=== PATIENT | male | born 1975 | race Caucasian/White ===

== ENCOUNTER 2017-01-27 18:19 | Emergency (ER) | payer OTHER ==
[2017-01-27 18:35] VITALS: TEMP 98.7; BMI 31.3
--- NOTE | 2017-01-27 19:16 | PDOC ---
[id number] DIZZINESS Time Seen by Provider: 01/27/17 19:15 History Source: Patient - History of Present Illness Initial Comments: 01/27/17 19:29 41 year old male with sudden onset lightheadedness from sitting to standing followed by b/l flank pain prior to arrival. patient reports pain to flank area similar to previous kidney stones. currently pain has resolved. patient reports taking b/p medication prior to arrival.denies chest pain, NV, abdominal pain, fever/ chills, hematuria, urinary complaints. Past History - Past Medical History Allergies/Adverse Reactions: Allergies Allergy/AdvReac Type Severity Reaction Status Date / Time No Known Allergies Allergy Verified 01/27/17 18:34 Home Medications: Ambulatory Orders Metformin HCl [Glucophage -] 500 mg PO BID #60 tablet 05/12/16 Amlodipine Besylate 10 mg PO DAILY 01/27/17 Glipizide 5 mg PO DAILY 01/27/17 Hydralazine HCl [Apresoline -] 25 mg PO DAILY 01/27/17 Losartan Potassium 25 mg PO DAILY 01/27/17 Cephalexin [Keflex] 500 mg PO TID #28 capsule 01/28/17 Diabetes: Yes (???) HTN: Yes (NON COMPLIANT WITH MEDICATION) Suicide Attempt (Hx): No - Psycho/Social/Smoking Cessation Hx Anxiety: No Suicidal Ideation: No Smoking Status: No Smoking History: Never smoked Number of Cigarettes Smoked Daily: 0 Hx Alcohol Use: No Drug/Substance Use Hx: No Substance Use Type: None *Physical Exam - Vital Signs Last Vital Signs Temp Pulse Resp BP Pulse Ox 98.7 F 88 20 170/109 97 01/27/17 18:31 01/27/17 19:04 01/27/17 19:04 01/27/17 19:04 01/27/17 18:31 - Physical Exam General Appearance: Yes: Appropriately Dressed HEENT: positive: Other (right nipple area dime sized erythematous area and warm/ tenderness to touch to touch) Respiratory/Chest: positive: Lungs Clear, Normal Breath Sounds Cardiovascular: positive: Regular Rhythm, Regular Rate Gastrointestinal/Abdominal: positive: Normal Bowel Sounds, Soft Musculoskeletal: positive: Normal Inspection. 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 cephalexin added. patient called and informed. antibiotics sent to patient preferred pharmacy. *DC/Admit/Observation/Transfer Diagnosis at time of Disposition: Near syncope, Hypokalemia Hypertension Qualifiers: Hypertension type: essential hypertension Qualified Code(s): I10 - Essential ( primary) hypertension Cellulitis Qualifiers: Site of cellulitis: trunk Site of cellulitis of trunk: chest wall Qualified Code(s): L03.313 - Cellulitis of chest wall - Discharge Dispostion Disposition: HOME - Prescriptions Prescriptions: Cephalexin [Keflex] 500 mg PO TID #28 capsule - Referrals Referrals: Greg Zelaya MD [Primary Care Provider] - - Patient Instructions Printed Discharge Instructions: Malignant Hypertension Additional Instructions: follow up with your doctor as soon as possible. position change slowly. return to the ER if symptoms worsen.
[2017-01-27 19:34] LABS: BASOPHIL 1.1 % (0-2.0); EOSINOPHIL 2.4 % (0-4.5); MCH 30.5 pg (25.7-33.7); MCHC 34.3 g/dl (32.0-35.9); MEAN CELL VOLUME 88.7 fl (80-96); MEAN PLT VOLUME 11.1 fl (7.5-11.1); NEUTROPHILS 48.1 % (42.8-82.8); PLATELET COUNT 125 K/MM3 (134-434); RDW 13.6 % (11.9-15.9)
[2017-01-27 19:39] LABS: ALBUMIN 4.3 g/dl (3.4-5.0); ANION GAP 12 (8-16); CALCIUM 8.6 mg/dL (8.5-10.1); CO2 27 mmol/L (21-32); COCKROFT - GAULT 122.21; GLUCOSE,RANDOM 93 mg/dL (74-106); SGOT/AST 26 U/L (15-37); SGPT/ALT 51 U/L (12-78)
[2017-01-27 19:42] LABS: ALK PHOS 83 U/L (45-117); BILIRUBIN,TOTAL 0.5 mg/dL (0.2-1.0); TOT PROT 7.3 g/dl (6.4-8.2); TROPONIN I < 0.02 ng/ml (0.00-0.05)
[2017-01-27] MEDS ORDERED: cloNIDine HCL 0.1 MG TABLET PO ONE (20:04)
[2017-01-27] MEDS ORDERED: cloNIDine HCL 0.1 MG TABLET ONE (20:14)
--- NOTE | 2017-01-27 20:40 | PDOC ---
*Physical Exam - Vital Signs Last Vital Signs Temp Pulse Resp BP Pulse Ox 98.7 F 88 20 170/109 97 01/27/17 18:31 01/27/17 19:04 01/27/17 19:04 01/27/17 19:04 01/27/17 18:31 ED Treatment Course - LABORATORY CBC & Chemistry Diagram: 01/27/17 18:53 01/27/17 18:53 - ADDITIONAL ORDERS Additional order review: Laboratory Results 01/27/17 01/27/17 18:53 18:53 Sodium 142 Potassium 3.1 L D Chloride 103 Carbon Dioxide 27 Anion Gap 12 BUN 15 Creatinine 1.0 Creat Clearance w eGFR > 60 Random Glucose 93 D Calcium 8.6 Total Bilirubin 0.5 D AST 26 D ALT 51 D Alkaline Phosphatase 83 Creatine Kinase 220 Creatine Kinase Index 0.5 CK-MB (CK-2) 1.076 CK-MB (CK-2) Rel Index Cancelled Troponin I < 0.02 Total Protein 7.3 Albumin 4.3 01/27/17 18:53 RBC 5.01 MCV 88.7 MCHC 34.3 RDW 13.6 MPV 11.1 Neutrophils % 48.1 Lymphocytes % 43.6 H Monocytes % 4.8 Eosinophils % 2.4 Basophils % 1.1 - RADIOLOGY Radiology Studies Ordered: Category Date Time Status CHEST X-RAY PORTABLE* [RAD] Stat Radiology 01/27/17 18:50 Completed - Medications Given in the ED: ED Medications Discontinued Medications Generic Name Dose Route Start Last Admin Trade Name Freq PRN Reason Stop Dose Admin Clonidine 0.2 mg 01/27/17 20:04 01/27/17 20:17 Catapres - PO 01/27/17 20:05 0.2 mg ONCE ONE Administration Medical Decision Making - Medical Decision Making 01/27/17 20:40 agree with care from SUSAN Hankins *DC/Admit/Observation/Transfer Diagnosis at time of Disposition: Near syncope, Hypertension, Hypokalemia, Cellulitis - Discharge Dispostion Disposition: HOME - Prescriptions Prescriptions: Cephalexin [Keflex] 500 mg PO TID #28 capsule - Referrals Referrals: Greg Zelaya MD [Primary Care Provider] - - Patient Instructions Printed Discharge Instructions: Malignant Hypertension Additional Instructions: follow up with your doctor as soon as possible. position change slowly. return to the ER if symptoms worsen. - Post Discharge Activity
[2017-01-27 20:56] LABS: INR 1.02 (0.82-1.09); PROTHROMBIN TIME (PATIENT) 11.2 SEC (9.98-11.88)
[2017-01-27 21:02] LABS: URINE APPEARANCE CLEAR; URINE BILIRUBIN NEGATIVE (NEGATIVE); URINE BLOOD NEGATIVE (NEGATIVE); URINE COLOR STRAW; URINE GLUCOSE (UA) NEGATIVE (NEGATIVE); URINE KETONE TRACE (NEGATIVE); URINE LEUK ESTERASE NEGATIVE (NEGATIVE); URINE NITRITE NEGATIVE (NEGATIVE); URINE PROTEIN NEGATIVE (NEGATIVE); URINE UROBILINOGEN NEGATIVE E.U./dl (0.2-1.0)
[2017-01-28 00:21] LABS: TROPONIN I < 0.02 ng/ml (0.00-0.05)
[2017-01-28] MEDS ORDERED: POTASSIUM CHLORIDE TABS 20 MEQ TABLET.ER (FP) PO ONE ×2 (00:21→00:27)
[2017-01-28 00:38] VITALS: BP 110/71; PULSE 65
--- NOTE | 2017-01-28 09:09 | EKG ---
Test Reason : Blood Pressure : / mmHG Vent. Rate : 075 BPM Atrial Rate : 075 BPM P-R Int : 172 ms QRS Dur : 098 ms QT Int : 416 ms P-R-T Axes : 049 010 024 degrees QTc Int : 464 ms NORMAL SINUS RHYTHM INCOMPLETE RBBB NONSPECIFIC ST ABNORMALITY WHEN COMPARED WITH ECG OF 12-MAY-2016 14:34, NO SIGNIFICANT CHANGE WAS FOUND Confirmed by KEM MENARD MD ([id number]) on 01/28/2017 9:08:59 AM Referred By: Confirmed By:KEM MENARD MD
== END 2017-01-28 00:43 | disposition home or self-care (01) ==
LOC: JER 18:19
DX: R55 Syncope and collapse (principal); E87.6 Hypokalemia; N20.0 Calculus of kidney; Z87.442 Personal history of urinary calculi; L03.313 Cellulitis of chest wall; I10 Essential (primary) hypertension; E11.9 Type 2 diabetes mellitus without complications; Z79.84 Long term (current) use of oral hypoglycemic drugs; Z91.14 Patient's other noncompliance with medication regimen
CPT/HCPCS: 36415; 71010-TC; 74176; 80053; 81003; 82550; 82553; 84484; 85025; 85610; 93005; 93010; 99285-25

== ENCOUNTER 2024-07-04 09:12 | Inpatient (IN) | payer OTHER ==
[2024-07-04 10:09] LABS: INR 0.97 (0.83-1.09); PROTHROMBIN TIME (PATIENT) 11.1 SEC (9.7-13.0)
[2024-07-04 10:12] LABS: ACTIVATED PTT 40.2 SECONDS (25.2-36.5)
[2024-07-04] MEDS: SODIUM CHLORIDE 0.9% 500 ML INFUS.BAG IV ONE (10:12)
[2024-07-04] MEDS: FAMOTIDINE 20 MG/50 ML IVPB 20 MG/50 ML MG IVPB ONE (10:13)
[2024-07-04] MEDS: diphenhydrAMINE HCL 50 MG CAPSULE PO ONE (10:13)
[2024-07-04] MEDS: MAG HYDROX/AL HYDROX/SIMETH 30 ML UNIT-DOSE CUP PO ONE (10:13)
[2024-07-04 10:19] LABS: HEMATOCRIT 42.7 % (35.4-49); MCH 30.6 pg (25.7-33.7); MCHC 32.8 g/dl (32.0-35.9); MEAN CELL VOLUME 93.3 fl (80-96); MEAN PLT VOLUME 12.7 fl (7.5-11.1); PLATELET COUNT 74.1 10^3/uL (134-434); RBC 4.58 10^6/uL (4.00-5.60); RDW 14.7 % (11.9-15.9); WHITE BLOOD COUNT 3.8 10^3/uL (4.0-10.8)
[2024-07-04] MEDS ORDERED: diphenhydrAMINE HCL 25 MG CAPSULE (FP) PO ONE (10:21)
[2024-07-04] MEDS ORDERED: FAMOTIDINE 20 MG/50 ML IVPB 20 MG/50 ML MG IVPB ONE (10:21)
[2024-07-04] MEDS ORDERED: MAG HYDROX/AL HYDROX/SIMETH 30 ML UNIT-DOSE CUP ONE (10:22)
[2024-07-04 10:25] LABS: PLATELET ESTIMATE DECREASED
[2024-07-04 10:28] LABS: ALBUMIN 3.9 g/dl (3.4-5.0); CALCIUM 9.3 mg/dl (8.5-10.1); CALCIUM OXALATE CRYSTALS MANY /hpf (NONE SEEN); CREATININE 1.1 mg/dl (0.6-1.3); POTASSIUM 3.6 mmol/L (3.5-5.1); TOT PROT 6.7 g/dl (6.4-8.2)
[2024-07-04] MEDS: INSULIN ASPART SLIDING SCALE (NOVOLOG) 1 VIAL SQ SCH (16:34)
[2024-07-04] MEDS: LACTATED RINGERS SOLUTION 1,000 ML IV SCH (16:36)
[2024-07-04] MEDS: PIPERACILLIN/TAZOB 3.375 GM 3.375 GM in DEXTROSE 5%-WATER - 50 ML IVPB SCH (19:19)
[2024-07-05 08:53] LABS: BASO % 1.2 % (0-2.0); EOS % 3.3 % (0-4.5); HEMATOCRIT 41.3 % (35.4-49); HEMOGLOBIN 13.9 GM/dL (11.7-16.9); LYMPH % 36.9 % (8-40); MCH 30.9 pg (25.7-33.7); MCHC 33.7 g/dl (32.0-35.9); MEAN CELL VOLUME 91.9 fl (80-96); MEAN PLT VOLUME 12.1 fl (7.5-11.1); NEUT % 52.6 % (42.8-82.8); PLATELET COUNT 74 10^3/uL (134-434); RBC 4.49 M/mm3 (4.00-5.60); RDW 14.9 % (11.9-15.9); WHITE BLOOD COUNT 3.6 K/mm3 (4.0-10.0)
[2024-07-05 08:54] LABS: POTASSIUM 3.5 mmol/L (3.5-5.1)
[2024-07-05 08:57] LABS: CALCIUM 8.8 mg/dL (8.5-10.1)
[2024-07-05 08:58] LABS: BLOOD UREA NITROGEN 16.6 mg/dL (7-18)
[2024-07-05 09:01] LABS: CREATININE 1.1 mg/dL (0.55-1.3)
[2024-07-05 09:02] LABS: BILIRUBIN,TOTAL 3.1 mg/dL (0.2-1); TOT PROT 6.5 g/dl (6.4-8.2)
[2024-07-05 09:05] LABS: INR 0.94 (0.83-1.09); PROTHROMBIN TIME (PATIENT) 10.8 SEC (9.7-13.0)
[2024-07-05] MEDS: amLODIPine BESYLATE 10 MG TABLET (FP) PO SCH (09:08)
[2024-07-05] MEDS: LISINOPRIL 20 MG TABLET PO SCH (09:08)
[2024-07-05] MEDS: PIPERACILLIN/TAZOB 3.375 GM 3.375 GM in DEXTROSE 5%-WATER - 50 ML IVPB SCH ×2 (17:05→17:43)
[2024-07-06] MEDS ORDERED: PIPERACILLIN/TAZOB 3.375 GM 3.375 GM in DEXTROSE 5%-WATER - 50 ML IVPB SCH (01:00)
[2024-07-06 06:09] LABS: CMV IgM < 30.0 AU/mL (0.0-29.9)
[2024-07-06] MEDS: PIPERACILLIN/TAZOB 3.375 GM 3.375 GM in DEXTROSE 5%-WATER - 50 ML IVPB SCH (08:57)
[2024-07-06] MEDS: INDOMETHACIN 50 MG RECTAL SUPPOSITORY PR ONE ×2 (08:57→12:48)
[2024-07-06 09:13] LABS: POTASSIUM 3.5 mmol/L (3.5-5.1)
[2024-07-06 09:18] LABS: BASO % 1.4 % (0-2.0); EOS % 3.4 % (0-4.5); HEMATOCRIT 42.1 % (35.4-49); HEMOGLOBIN 14.1 GM/dL (11.7-16.9); LYMPH % 29.7 % (8-40); MCH 31.1 pg (25.7-33.7); MCHC 33.4 g/dl (32.0-35.9); MEAN CELL VOLUME 93.1 fl (80-96); MEAN PLT VOLUME 11.5 fl (7.5-11.1); MONO % 5.7 % (3.8-10.2); NEUT % 59.8 % (42.8-82.8); PLATELET COUNT 74 10^3/uL (134-434); RBC 4.53 M/mm3 (4.00-5.60); RDW 14.5 % (11.9-15.9); WHITE BLOOD COUNT 3.9 K/mm3 (4.0-10.0)
[2024-07-06 09:26] LABS: ALBUMIN 3.2 g/dl (3.4-5.0)
[2024-07-06 09:27] LABS: BLOOD UREA NITROGEN 17.4 mg/dL (7-18); CALCIUM 9.1 mg/dL (8.5-10.1); MAGNESIUM 2.4 mg/dL (1.8-2.4)
[2024-07-06 09:30] LABS: BILIRUBIN,TOTAL 4.2 mg/dL (0.2-1); CREATININE 1.1 mg/dL (0.55-1.3); PHOSPHOROUS 3.2 mg/dL (2.5-4.9); TOT PROT 6.7 g/dl (6.4-8.2)
[2024-07-06 13:01] LABS: HIV INTERPRETATION NEGATIVE (NEGATIVE)
[2024-07-06] MEDS ORDERED: MIDAZOLAM HCL 2 MG/2 ML SINGLE DOSE VIAL ONE (13:38)
[2024-07-06] MEDS ORDERED: EPINEPHrine 1:10,000 (P-F SYR) 1 MG/10 ML DISP.SYRIN ONE (13:46)
[2024-07-06] MEDS ORDERED: ACETAMINOPHEN 500 MG TABLET (FP) PO PRN (20:47)
[2024-07-06] MEDS: ACETAMINOPHEN 500 MG TABLET (FP) PO ONE (20:54)
[2024-07-06] MEDS: ONDANSETRON 4 MG/2 ML VIAL IVPUSH ONE (21:55)
[2024-07-06] MEDS: ACETAMINOPHEN 500 MG TABLET (FP) PO SCH (21:58)
[2024-07-06] MEDS ORDERED: KETOROLAC TROMETHAMINE 30 MG/1 ML VIAL IVPUSH PRN (22:22)
[2024-07-06] MEDS: KETOROLAC TROMETHAMINE 30 MG/1 ML VIAL IVPUSH ONE (22:34)
[2024-07-07] MEDS: morphine SULFATE 4 MG/ML VIAL IVPUSH PRN ×2 (01:21→09:40)
[2024-07-07] MEDS: ONDANSETRON 4 MG/2 ML VIAL IVPUSH PRN (03:25)
[2024-07-07] MEDS: LACTATED RINGERS SOLUTION 1,000 ML/1,000 ML INFUS.BAG IV SCH ×2 (06:38→14:39)
[2024-07-07] MEDS: HYDROmorphone HCL 2 MG TABLET PO PRN (06:44)
[2024-07-07 09:26] LABS: POTASSIUM 3.9 mmol/L (3.5-5.1)
[2024-07-07 09:31] LABS: BASO % 0.1 % (0-2.0); HEMATOCRIT 48.4 % (35.4-49); HEMOGLOBIN 16.1 GM/dL (11.7-16.9); LYMPH % 7.7 % (8-40); MCH 30.9 pg (25.7-33.7); MCHC 33.1 g/dl (32.0-35.9); MEAN CELL VOLUME 93.2 fl (80-96); MONO % 5.6 % (3.8-10.2); NEUT % 86.6 % (42.8-82.8); RBC 5.19 M/mm3 (4.00-5.60); RDW 14.5 % (11.9-15.9)
[2024-07-07 09:34] LABS: CALCIUM 9.3 mg/dL (8.5-10.1)
[2024-07-07 09:35] LABS: BLOOD UREA NITROGEN 31.2 mg/dL (7-18)
[2024-07-07 09:38] LABS: CREATININE 2.3 mg/dL (0.55-1.3)
[2024-07-07 09:39] LABS: BILIRUBIN,TOTAL 3.1 mg/dL (0.2-1); TOT PROT 6.3 g/dl (6.4-8.2)
[2024-07-07] MEDS: SODIUM CHLORIDE 1,000 ML IV STA ×2 (12:02→12:21)
[2024-07-07] MEDS ORDERED: HYDROmorphone HCl 2 MG/ML VIAL IVPUSH PRN (12:55)
[2024-07-07] MEDS ORDERED: LACTATED RINGERS SOLUTION 1,000 ML/1,000 ML INFUS.BAG IV SCH (13:00)
[2024-07-07] MEDS: HYDROmorphone HCL CARPU-JECT 2 MG/1 ML DISP.SYRIN IVPUSH PRN (13:06)
[2024-07-07 14:33] LABS: EPI CELLS 15 /uL (0-25.1); HYALINE CASTS 5 /uL (0-3.1); URINE APPEARANCE CLEAR; URINE BACTERIA 3 /uL (0-1359); URINE BILIRUBIN 1+ (NEGATIVE); URINE COLOR DK YELLOW; URINE GLUCOSE (UA) NEGATIVE (NEGATIVE); URINE KETONE NEGATIVE (NEGATIVE); URINE LEUK ESTERASE NEGATIVE (NEGATIVE); URINE NITRITE NEGATIVE (NEGATIVE); URINE PROTEIN 2+ (NEGATIVE); URINE WBC 127 /uL (0-25.8)
[2024-07-07 14:36] LABS: URINE RBC 15 /uL (0-23.9); YEAST NONE SEEN (NEGATIVE)
[2024-07-08 09:35] LABS: HEMATOCRIT 45.6 % (35.4-49); HEMOGLOBIN 15.5 GM/dL (11.7-16.9); MCH 31.4 pg (25.7-33.7); MCHC 33.9 g/dl (32.0-35.9); MEAN CELL VOLUME 92.7 fl (80-96); MEAN PLT VOLUME 12.6 fl (7.5-11.1); PLATELET COUNT 121 10^3/uL (134-434); RBC 4.92 M/mm3 (4.00-5.60); RDW 15.2 % (11.9-15.9); WHITE BLOOD COUNT 20.9 K/mm3 (4.0-10.0)
[2024-07-08] MEDS: PANTOPRAZOLE 40 MG TABLET PO SCH (10:00)
[2024-07-08] MEDS: SENNOSIDES 8.6MG TABLET (FP) PO SCH (10:00)
[2024-07-08] MEDS: POLYETHYLENE GLYCOL (HEALTHYLAX) 3350 17 GM PACKET PO SCH (10:00)
[2024-07-08 10:04] LABS: POTASSIUM 3.9 mmol/L (3.5-5.1)
[2024-07-08 10:06] LABS: ALBUMIN 2.8 g/dl (3.4-5.0)
[2024-07-08 10:07] LABS: BLOOD UREA NITROGEN 49.2 mg/dL (7-18)
[2024-07-08 10:10] LABS: CREATININE 2.2 mg/dL (0.55-1.3)
[2024-07-08 10:11] LABS: BILIRUBIN,TOTAL 2.9 mg/dL (0.2-1); TOT PROT 5.9 g/dl (6.4-8.2)
[2024-07-08 10:27] LABS: ANISOCYTOSIS 0; HELMET CELLS 0; HOWELL-JOLLY BODIES 0; MACROCYTOSIS 0; OVALOCYTE 0; ROULEAU 0; SICKELED CELLS 0; TARGET CELLS 0; TEAR DROP CELLS 0; TOXIC GRANULATION 0
[2024-07-08 10:34] LABS: CALCIUM 7.9 mg/dL (8.5-10.1)
[2024-07-08] MEDS: LACTATED RINGERS SOLUTION 1,000 ML/1,000 ML INFUS.BAG IV SCH (11:11)
[2024-07-09 09:17] LABS: BASO % 0.4 % (0-2.0); EOS % 0.2 % (0-4.5); HEMATOCRIT 41.1 % (35.4-49); HEMOGLOBIN 13.7 GM/dL (11.7-16.9); LYMPH % 5.9 % (8-40); MCH 31.1 pg (25.7-33.7); MCHC 33.2 g/dl (32.0-35.9); MEAN CELL VOLUME 93.7 fl (80-96); MEAN PLT VOLUME 12.4 fl (7.5-11.1); MONO % 7.5 % (3.8-10.2); PLATELET COUNT 92 10^3/uL (134-434); RBC 4.39 M/mm3 (4.00-5.60); RDW 14.7 % (11.9-15.9); WHITE BLOOD COUNT 17.5 K/mm3 (4.0-10.0)
[2024-07-09 09:32] LABS: POTASSIUM 3.8 mmol/L (3.5-5.1)
[2024-07-09 09:35] LABS: ALBUMIN 2.3 g/dl (3.4-5.0); CALCIUM 7.3 mg/dL (8.5-10.1)
[2024-07-09 09:36] LABS: MAGNESIUM 1.8 mg/dL (1.8-2.4)
[2024-07-09 09:39] LABS: CREATININE 1.6 mg/dL (0.55-1.3); PHOSPHOROUS 2.4 mg/dL (2.5-4.9)
[2024-07-09 09:40] LABS: BILIRUBIN,TOTAL 2.9 mg/dL (0.2-1); TOT PROT 5.1 g/dl (6.4-8.2)
[2024-07-09] MEDS: POTASSIUM PHOSPHATE 15 MM in DEXTROSE 5%-WATER - 250 ML IVPB ONE (13:34)
[2024-07-09] MEDS ORDERED: MAGNESIUM 2GM/50ML STERILE WATER IVPB IVPB ONE (17:45)
[2024-07-10 10:49] LABS: BASO % 0.2 % (0-2.0); EOS % 0.3 % (0-4.5); HEMATOCRIT 39.6 % (35.4-49); HEMOGLOBIN 13.3 GM/dL (11.7-16.9); LYMPH % 5.9 % (8-40); MCH 31.2 pg (25.7-33.7); MCHC 33.5 g/dl (32.0-35.9); MEAN CELL VOLUME 92.9 fl (80-96); MONO % 8.5 % (3.8-10.2); NEUT % 85.1 % (42.8-82.8); PLATELET COUNT 96 10^3/uL (134-434); RBC 4.26 M/mm3 (4.00-5.60); RDW 14.6 % (11.9-15.9); WHITE BLOOD COUNT 14.4 K/mm3 (4.0-10.0)
[2024-07-10 11:12] LABS: POTASSIUM 3.4 mmol/L (3.5-5.1)
[2024-07-10 11:42] LABS: ALBUMIN 2.4 g/dl (3.4-5.0)
[2024-07-10 11:45] LABS: BILIRUBIN,TOTAL 3.1 mg/dL (0.2-1); TOT PROT 5.4 g/dl (6.4-8.2)
[2024-07-10 11:46] LABS: ALBUMIN 2.5 g/dl (3.4-5.0); BILIRUBIN,DIRECT 2.1 mg/dL (0.0-0.2)
[2024-07-10 11:50] LABS: BLOOD UREA NITROGEN 39.9 mg/dL (7-18); CALCIUM 7.8 mg/dL (8.5-10.1)
[2024-07-10 11:54] LABS: BILIRUBIN,TOTAL 3.2 mg/dL (0.2-1); CREATININE 1.3 mg/dL (0.55-1.3); TOT PROT 5.5 g/dl (6.4-8.2)
[2024-07-10] MEDS: POTASSIUM CHLORIDE ORAL LIQUID 20 MEQ/15 ML PO ONE (13:54)
[2024-07-10 21:07] LABS: IG G QN IMMUNOGLOBULIN 1034 mg/dL (603-1613); IGG SUBCLASS 1 453 mg/dL (248-810); IGG SUBCLASS 2 413 mg/dL (130-555); IGG SUBCLASS 3 90 mg/dL (15-102)
[2024-07-11] MEDS: HYDROmorphone HCL CARPU-JECT 2 MG/1 ML DISP.SYRIN IVPB PRN (09:19)
[2024-07-11] MEDS: predniSONE 20 MG TABLET (UD) PO SCH (09:34)
[2024-07-11] MEDS: CALCIUM 250MG/VIT-D 125 UNITS 1 COMBO TABLET PO SCH (09:35)
[2024-07-11 10:14] LABS: INR 1.43 (0.83-1.09); PROTHROMBIN TIME (PATIENT) 16.3 SEC (9.7-13.0)
[2024-07-11 10:18] LABS: BASO % 0.4 % (0-2.0); EOS % 0.6 % (0-4.5); HEMATOCRIT 36.9 % (35.4-49); HEMOGLOBIN 12.1 GM/dL (11.7-16.9); LYMPH % 8.9 % (8-40); MCH 30.6 pg (25.7-33.7); MCHC 32.9 g/dl (32.0-35.9); MEAN CELL VOLUME 93.2 fl (80-96); MEAN PLT VOLUME 11.6 fl (7.5-11.1); NEUT % 80.1 % (42.8-82.8); PLATELET COUNT 103 10^3/uL (134-434); RBC 3.96 M/mm3 (4.00-5.60); RDW 14.3 % (11.9-15.9); WHITE BLOOD COUNT 11.5 K/mm3 (4.0-10.0)
[2024-07-11 10:28] LABS: POTASSIUM 3.3 mmol/L (3.5-5.1)
[2024-07-11 10:42] LABS: BLOOD UREA NITROGEN 24.7 mg/dL (7-18); CALCIUM 7.8 mg/dL (8.5-10.1)
[2024-07-11 10:43] LABS: ALBUMIN 2.2 g/dl (3.4-5.0)
[2024-07-11 10:46] LABS: TOT PROT 5.1 g/dl (6.4-8.2)
[2024-07-11 10:48] LABS: BILIRUBIN,TOTAL 2.7 mg/dL (0.2-1)
[2024-07-11 10:49] LABS: BILIRUBIN,DIRECT 1.8 mg/dL (0.0-0.2)
[2024-07-11] MEDS: POTASSIUM CHLORIDE ORAL LIQUID 20 MEQ/15 ML PO ONE ×2 (13:17→16:10)
[2024-07-11] MEDS ORDERED: SENNOSIDES 8.6MG TABLET (FP) PO SCH (22:00)
[2024-07-12 10:04] LABS: BASO % 0.2 % (0-2.0); EOS % 0.4 % (0-4.5); HEMOGLOBIN 11.9 GM/dL (11.7-16.9); LYMPH % 12.9 % (8-40); MCH 30.9 pg (25.7-33.7); MEAN PLT VOLUME 10.7 fl (7.5-11.1); MONO % 9.9 % (3.8-10.2); NEUT % 76.6 % (42.8-82.8); PLATELET COUNT 117 10^3/uL (134-434); RBC 3.84 M/mm3 (4.00-5.60); RDW 14.4 % (11.9-15.9); WHITE BLOOD COUNT 11.7 K/mm3 (4.0-10.0)
[2024-07-12 10:06] LABS: INR 1.27 (0.83-1.09); PROTHROMBIN TIME (PATIENT) 14.3 SEC (9.7-13.0)
[2024-07-12 10:24] LABS: POTASSIUM 3.6 mmol/L (3.5-5.1)
[2024-07-12 10:27] LABS: ALBUMIN 2.2 g/dl (3.4-5.0)
[2024-07-12 10:28] LABS: BLOOD UREA NITROGEN 25.2 mg/dL (7-18)
[2024-07-12 10:31] LABS: CREATININE 0.9 mg/dL (0.55-1.3)
[2024-07-12 10:32] LABS: BILIRUBIN,TOTAL 1.8 mg/dL (0.2-1); TOT PROT 5.3 g/dl (6.4-8.2)
[2024-07-12] MEDS: POLYETHYLENE GLYCOL (HEALTHYLAX) 3350 17 GM PACKET PO SCH (10:34)
[2024-07-12] MEDS: HYDROmorphone HCL CARPU-JECT 2 MG/1 ML DISP.SYRIN IVPB PRN ×2 (10:35→17:01)
[2024-07-12] MEDS ORDERED: SODIUM CHLORIDE 1,000 ML IV SCH (12:45)
[2024-07-12] MEDS: LACTATED RINGERS SOLUTION 1,000 ML/1,000 ML INFUS.BAG IV SCH (18:31)
[2024-07-13 09:14] LABS: BASO % 0.1 % (0-2.0); EOS % 0.1 % (0-4.5); HEMATOCRIT 38.2 % (35.4-49); HEMOGLOBIN 12.5 GM/dL (11.7-16.9); LYMPH % 10.2 % (8-40); MCH 30.5 pg (25.7-33.7); MCHC 32.9 g/dl (32.0-35.9); MEAN CELL VOLUME 92.9 fl (80-96); MONO % 8.7 % (3.8-10.2); NEUT % 80.9 % (42.8-82.8); PLATELET COUNT 149 10^3/uL (134-434); RBC 4.11 M/mm3 (4.00-5.60); RDW 14.4 % (11.9-15.9); WHITE BLOOD COUNT 13.1 K/mm3 (4.0-10.0)
[2024-07-13 09:28] LABS: POTASSIUM 4.3 mmol/L (3.5-5.1)
[2024-07-13 09:34] LABS: ALBUMIN 2.2 g/dl (3.4-5.0); BLOOD UREA NITROGEN 26.7 mg/dL (7-18); CALCIUM 8.4 mg/dL (8.5-10.1)
[2024-07-13 09:35] LABS: CREATININE 0.8 mg/dL (0.55-1.3)
[2024-07-13 09:36] LABS: BILIRUBIN,TOTAL 1.8 mg/dL (0.2-1)
[2024-07-13 09:37] LABS: TOT PROT 5.5 g/dl (6.4-8.2)
[2024-07-13] MEDS: HYDROmorphone HCL CARPU-JECT 2 MG/1 ML DISP.SYRIN IVPB PRN (12:06)
[2024-07-13] MEDS: oxyCODONE HCL 5 MG TABLET PO PRN (18:50)
[2024-07-14 10:49] LABS: HEMATOCRIT 38.4 % (35.4-49); HEMOGLOBIN 12.7 GM/dL (11.7-16.9); MCH 30.2 pg (25.7-33.7); MEAN CELL VOLUME 91.7 fl (80-96); MEAN PLT VOLUME 10.3 fl (7.5-11.1); PLATELET COUNT 172 10^3/uL (134-434); RBC 4.19 M/mm3 (4.00-5.60); RDW 14.1 % (11.9-15.9); WHITE BLOOD COUNT 17.4 K/mm3 (4.0-10.0)
[2024-07-14 11:10] LABS: POTASSIUM 3.2 mmol/L (3.5-5.1)
[2024-07-14 11:18] LABS: ALBUMIN 2.2 g/dl (3.4-5.0)
[2024-07-14 11:19] LABS: BLOOD UREA NITROGEN 21.2 mg/dL (7-18)
[2024-07-14 11:20] LABS: BILIRUBIN,TOTAL 1.4 mg/dL (0.2-1); TOT PROT 5.6 g/dl (6.4-8.2)
[2024-07-14 11:22] LABS: CREATININE 0.9 mg/dL (0.55-1.3)
[2024-07-14] MEDS: LIPASE/PROTEASE/AMYLASE 36,000 UNIT CAPSULE PO SCH (11:24)
[2024-07-14] MEDS ORDERED: oxyCODONE HCL 5 MG TABLET PO PRN (11:48)
[2024-07-14 11:49] LABS: ANISOCYTOSIS 0; MACROCYTOSIS 0
[2024-07-14 11:50] LABS: PLATELET ESTIMATE ADEQUATE
[2024-07-14] MEDS: SIMETHICONE 80 MG TAB.CHEW (FP) PO SCH (14:07)
[2024-07-14] MEDS: POTASSIUM CHLORIDE TABS 20 MEQ TABLET.ER (FP) PO SCH (16:00)
[2024-07-14 21:05] VITALS: BMI 25.9
[2024-07-14] MEDS: oxyCODONE HCL 5 MG TABLET PO PRN (21:31)
[2024-07-15 10:13] LABS: HEMOGLOBIN 12.5 GM/dL (11.7-16.9); MCH 30.7 pg (25.7-33.7); MCHC 33.7 g/dl (32.0-35.9); MEAN PLT VOLUME 10.5 fl (7.5-11.1); PLATELET COUNT 164 10^3/uL (134-434); RBC 4.07 M/mm3 (4.00-5.60); RDW 14.1 % (11.9-15.9); WHITE BLOOD COUNT 18.1 K/mm3 (4.0-10.0)
[2024-07-15 10:29] LABS: POTASSIUM 3.8 mmol/L (3.5-5.1)
[2024-07-15 10:31] LABS: CALCIUM 7.9 mg/dL (8.5-10.1)
[2024-07-15 10:32] LABS: MAGNESIUM 1.9 mg/dL (1.8-2.4)
[2024-07-15 10:35] LABS: CREATININE 0.8 mg/dL (0.55-1.3); PHOSPHOROUS 2.6 mg/dL (2.5-4.9)
[2024-07-15 10:36] LABS: BILIRUBIN,TOTAL 1.2 mg/dL (0.2-1); TOT PROT 5.3 g/dl (6.4-8.2)
[2024-07-15 10:45] LABS: ANISOCYTOSIS 0; MACROCYTOSIS 0
[2024-07-15] MEDS: DEXTROSE 5%-NORMAL SALINE 1,000 ML IV SCH (11:41)
[2024-07-15] MEDS: KETOROLAC TROMETHAMINE 15 MG/ML VIAL IVPUSH ONE (17:50)
[2024-07-15 18:17] LABS: PH,URINE 6.5 (5.0-8.0); URINE APPEARANCE CLEAR; URINE BILIRUBIN NEGATIVE (NEGATIVE); URINE COLOR YELLOW; URINE GLUCOSE (UA) 1+ (NEGATIVE); URINE KETONE TRACE (NEGATIVE); URINE LEUK ESTERASE NEGATIVE (NEGATIVE); URINE NITRITE NEGATIVE (NEGATIVE); URINE PROTEIN NEGATIVE (NEGATIVE); URINE UROBILINOGEN 0.2 mg/dL (0.2-1.0)
[2024-07-15] MEDS: IBUPROFEN 600 MG TABLET (FP) PO SCH (21:23)
[2024-07-15] MEDS: TAMSULOSIN HCL 0.4 MG CAP PO SCH (21:23)
[2024-07-16 05:49] VITALS: RESP 20
[2024-07-16] MEDS: BISACODYL 5 MG TABLET.DR (FP) PO ONE (08:01)
[2024-07-16 10:45] LABS: BASO % 0.2 % (0-2.0); EOS % 0.4 % (0-4.5); HEMATOCRIT 37.6 % (35.4-49); HEMOGLOBIN 12.7 GM/dL (11.7-16.9); LYMPH % 8.3 % (8-40); MCH 30.7 pg (25.7-33.7); MCHC 33.9 g/dl (32.0-35.9); MEAN CELL VOLUME 90.5 fl (80-96); MEAN PLT VOLUME 10.3 fl (7.5-11.1); MONO % 3.9 % (3.8-10.2); NEUT % 87.2 % (42.8-82.8); PLATELET COUNT 181 10^3/uL (134-434); RBC 4.16 M/mm3 (4.00-5.60); RDW 14.1 % (11.9-15.9); WHITE BLOOD COUNT 16.9 K/mm3 (4.0-10.0)
[2024-07-16] MEDS: BENZOCAINE/MENTH/CETYLPYRD CL 1 EACH LOZENGE MM PRN (11:10)
[2024-07-16 11:42] LABS: POTASSIUM 3.8 mmol/L (3.5-5.1)
[2024-07-16 11:48] LABS: ALBUMIN 2.1 g/dl (3.4-5.0); BLOOD UREA NITROGEN 20.6 mg/dL (7-18); CALCIUM 8.3 mg/dL (8.5-10.1)
[2024-07-16 11:52] LABS: CREATININE 0.9 mg/dL (0.55-1.3)
[2024-07-16 11:53] LABS: BILIRUBIN,TOTAL 1.2 mg/dL (0.2-1); TOT PROT 5.6 g/dl (6.4-8.2)
[2024-07-16] MEDS ORDERED: SIMETHICONE 80 MG TAB.CHEW (FP) PO PRN (14:12)
[2024-07-16 15:38] VITALS: BP 113/85; PULSE 97; TEMP 99
[2024-07-16] MEDS ORDERED: LACTATED RINGERS SOLUTION 1,000 ML/1,000 ML INFUS.BAG IV SCH (22:00)
[2024-07-16] MEDS ORDERED: POLYETHYLENE GLYCOL (HEALTHYLAX) 3350 17 GM PACKET PO SCH (22:00)
[2024-07-18 14:09] LABS: C-ANCA <1:20 titer (Neg:<1:20)
== END 2024-07-16 17:13 | disposition home or self-care (01) ==
LOC: FER 09:12 → J6S 14:27
PROVIDERS: ADMIT Internal Medicine; ATTEND Internal Medicine
PROC: 0FD98ZX Extraction of Common Bile Duct, Via Natural or Artificial Opening Endoscopic, Diagnostic (ICD-10-PCS; 2024-07-06)
PROC: 0F7D8DZ Dilation of Pancreatic Duct with Intraluminal Device, Via Natural or Artificial Opening Endoscopic (ICD-10-PCS; 2024-07-06)
PROC: 0FCD8ZZ Extirpation of Matter from Pancreatic Duct, Via Natural or Artificial Opening Endoscopic (ICD-10-PCS; principal; 2024-07-06 09:45)
PROC: BF18YZZ Fluoroscopy of Pancreatic Ducts using Other Contrast (ICD-10-PCS; 2024-07-06 09:45)
DX: K80.20 Calculus of gallbladder without cholecystitis without obstruction (principal); D69.6 Thrombocytopenia, unspecified; I81 Portal vein thrombosis; K85.90 Acute pancreatitis without necrosis or infection, unspecified; N17.9 Acute kidney failure, unspecified; R17 Unspecified jaundice; E11.9 Type 2 diabetes mellitus without complications; I10 Essential (primary) hypertension; K91.89 Other postprocedural complications and disorders of digestive system; Y83.9 Surgical procedure, unspecified as the cause of abnormal reaction of the patient, or of later complication, without mention of misadventure at the time of the procedure; E86.0 Dehydration; N20.0 Calculus of kidney
CPT/HCPCS: 36415; 74018-TC-FY; 74176-TC; 74177-TC; 74183-TC; 74330-TC; 76000-TC-FY; 76705-TC; 76775-TC; 76856-TC; 80053; 80076; 81003; 81015; 82248; 82570; 82784; 82787; 82962; 83520; 83605; 83690; 83735; 83883; 84100; 84300; 85025; 85027; 85610; 85730; 86038; 86140; 86160; 86256; 86301; 86480; 86644; 86645; 86664; 86704; 86708; 86803; 86850; 86900; 86901; 87040; 87086; 87340; 87389; 87517; 87799; 88104; 88305-TC; 93975; 94010; 94760; 99285-25; Q9967

== ENCOUNTER 2024-09-05 05:48 | Inpatient (IN) | payer OTHER ==
[2024-08-29 13:47] VITALS: BMI 25.5
[2024-09-05] MEDS ORDERED: MIDAZOLAM HCL 2 MG/2 ML SINGLE DOSE VIAL ONE (08:00)
[2024-09-05] MEDS: amLODIPine BESYLATE 10 MG TABLET (FP) PO SCH (12:50)
[2024-09-05] MEDS: LISINOPRIL 20 MG TABLET PO SCH (12:51)
[2024-09-05] MEDS: predniSONE 10 MG TABLET (UD) PO SCH (12:55)
[2024-09-05] MEDS: LACTATED RINGERS SOLUTION 1000 ML INFUS.BAG IV ONE (12:55)
[2024-09-05 13:02] LABS: BASO % 0.3 % (0-2.0); HEMATOCRIT 42.4 % (35.4-49); HEMOGLOBIN 14.4 GM/dL (11.7-16.9); LYMPH % 9.3 % (8-40); MCH 31.9 pg (25.7-33.7); MEAN CELL VOLUME 93.9 fl (80-96); MEAN PLT VOLUME 10.2 fl (7.5-11.1); MONO % 1.5 % (3.8-10.2); NEUT % 88.9 % (42.8-82.8); PLATELET COUNT 123 10^3/uL (134-434); RBC 4.52 M/mm3 (4.00-5.60); RDW 15.7 % (11.9-15.9); WHITE BLOOD COUNT 6.8 K/mm3 (4.0-10.0)
[2024-09-05 13:30] LABS: POTASSIUM 3.7 mmol/L (3.5-5.1)
[2024-09-05 13:31] LABS: ALBUMIN 3.2 g/dl (3.4-5.0)
[2024-09-05 13:32] LABS: CALCIUM 9.5 mg/dL (8.5-10.1)
[2024-09-05 13:33] LABS: ALBUMIN 3.2 g/dl (3.4-5.0)
[2024-09-05 13:34] LABS: BILIRUBIN,DIRECT 1.9 mg/dL (0.0-0.2)
[2024-09-05 13:36] LABS: BILIRUBIN,TOTAL 2.8 mg/dL (0.2-1); CREATININE 0.9 mg/dL (0.55-1.3)
[2024-09-05 13:37] LABS: TOT PROT 6.7 g/dl (6.4-8.2)
[2024-09-05 13:38] LABS: BILIRUBIN,TOTAL 2.9 mg/dL (0.2-1); TOT PROT 6.9 g/dl (6.4-8.2)
[2024-09-06] MEDS: LACTATED RINGERS SOLUTION 1,000 ML/1,000 ML INFUS.BAG IV SCH (11:19)
[2024-09-06 14:03] LABS: ALBUMIN 2.9 g/dl (3.4-5.0); CALCIUM 8.8 mg/dL (8.5-10.1); POTASSIUM 3.5 mmol/L (3.5-5.1)
[2024-09-06 14:07] LABS: BLOOD UREA NITROGEN 22.6 mg/dL (7-18); CREATININE 1.3 mg/dL (0.55-1.3)
[2024-09-06] MEDS: INSULIN ASPART SLIDING SCALE (NOVOLOG) 1 VIAL SQ SCH (18:07)
[2024-09-06] MEDS: IBUPROFEN 400 MG TABLET (FP) PO ONE (21:35)
[2024-09-07 10:07] LABS: BASO % 0.9 % (0-2.0); HEMATOCRIT 38.9 % (35.4-49); HEMOGLOBIN 12.8 GM/dL (11.7-16.9); LYMPH % 7.9 % (8-40); MCH 30.9 pg (25.7-33.7); MCHC 32.8 g/dl (32.0-35.9); MEAN CELL VOLUME 94.1 fl (80-96); MEAN PLT VOLUME 9.8 fl (7.5-11.1); MONO % 7.2 % (3.8-10.2); PLATELET COUNT 95 10^3/uL (134-434); RBC 4.13 M/mm3 (4.00-5.60); RDW 15.4 % (11.9-15.9); WHITE BLOOD COUNT 9.7 K/mm3 (4.0-10.0)
[2024-09-07 10:35] LABS: BLOOD UREA NITROGEN 23.2 mg/dL (7-18); CALCIUM 8.3 mg/dL (8.5-10.1); MAGNESIUM 1.8 mg/dL (1.8-2.4)
[2024-09-07 10:36] LABS: ALBUMIN 2.4 g/dl (3.4-5.0)
[2024-09-07 10:39] LABS: CREATININE 1.1 mg/dL (0.55-1.3)
[2024-09-07 10:40] LABS: TOT PROT 5.2 g/dl (6.4-8.2)
[2024-09-07 10:49] LABS: BILIRUBIN,TOTAL 8.1 mg/dL (0.2-1)
[2024-09-07] MEDS: HYDROmorphone HCl 2 MG/ML VIAL IVPB PRN (11:06)
[2024-09-07] MEDS: PIPERACILLIN/TAZOB 3.375 GM 50 ML IVPB SCH (11:28)
[2024-09-07] MEDS: KCL 10 MEQ IVPB 10 MEQ/100 ML INFUS.BAG IVPB SCH (11:57)
[2024-09-07] MEDS ORDERED: MIDAZOLAM HCL 2 MG/2 ML SINGLE DOSE VIAL ONE (14:02)
[2024-09-07] MEDS: POTASSIUM CHLORIDE ORAL LIQUID 20 MEQ/15 ML PO ONE (15:30)
[2024-09-07] MEDS: LACTATED RINGERS SOLUTION 1,000 ML/1,000 ML INFUS.BAG IV SCH (17:55)
[2024-09-07] MEDS ORDERED: PIPERACILLIN/TAZOB 3.375 GM 50 ML IVPB SCH (18:00)
[2024-09-07] MEDS ORDERED: PROMETHAZINE HCL 25 MG/1 ML VIAL IVPB PRN (18:02)
[2024-09-07] MEDS ORDERED: ONDANSETRON 4 MG/2 ML VIAL IVPUSH PRN (18:02)
[2024-09-07] MEDS: LACTATED RINGERS SOLUTION 1,000 ML IV SCH (18:42)
[2024-09-07] MEDS: NAPH,MB-DB/K PH,MBDB POWDER PACKET PO ONE (18:58)
[2024-09-08] MEDS: predniSONE 5 MG TABLET (UD) PO SCH (09:42)
[2024-09-08] MEDS: POTASSIUM CHLORIDE TABS 20 MEQ TABLET.ER (FP) PO SCH (09:42)
[2024-09-08 10:13] LABS: BASO % 0.5 % (0-2.0); HEMATOCRIT 36.3 % (35.4-49); LYMPH % 10.6 % (8-40); MCH 31.2 pg (25.7-33.7); MEAN CELL VOLUME 94.8 fl (80-96); MEAN PLT VOLUME 10.1 fl (7.5-11.1); NEUT % 81.9 % (42.8-82.8); PLATELET COUNT 87 10^3/uL (134-434); RBC 3.84 M/mm3 (4.00-5.60); RDW 15.3 % (11.9-15.9); WHITE BLOOD COUNT 7.5 K/mm3 (4.0-10.0)
[2024-09-08 10:49] LABS: POTASSIUM 3.3 mmol/L (3.5-5.1)
[2024-09-08 10:57] LABS: ALBUMIN 2.3 g/dl (3.4-5.0)
[2024-09-08 10:59] LABS: CALCIUM 8.4 mg/dL (8.5-10.1)
[2024-09-08 11:00] LABS: CREATININE 1.1 mg/dL (0.55-1.3)
[2024-09-08 11:01] LABS: PHOSPHOROUS 1.6 mg/dL (2.5-4.9)
[2024-09-08 11:02] LABS: BILIRUBIN,TOTAL 7.8 mg/dL (0.2-1); MAGNESIUM 1.8 mg/dL (1.8-2.4); TOT PROT 5.1 g/dl (6.4-8.2)
[2024-09-08] MEDS: NAPH,MB-DB/K PH,MBDB POWDER PACKET PO ONE (14:15)
[2024-09-08] MEDS: LACTATED RINGERS SOLUTION 1,000 ML/1,000 ML INFUS.BAG IV SCH (14:15)
[2024-09-08] MEDS: VANCOMYCIN/WATER FOR INJ (PEG) 1,000 MG/200 ML BAG IVPB ONE (17:00)
[2024-09-08] MEDS: VANCOMYCIN/WATER FOR INJ (PEG) 1,000 MG/200 ML BAG IVPB SCH (17:52)
[2024-09-08] MEDS: MEROPENEM-0.9% SODIUM CHLORIDE 1 GM/50 ML BAG IVPB SCH (17:52)
[2024-09-08] MEDS ORDERED: MEROPENEM-0.9% SODIUM CHLORIDE 1 GM/50 ML BAG IVPB SCH (18:00)
[2024-09-08] MEDS ORDERED: MEROPENEM 1 GM in DEXTROSE 5%-WATER 100 ML IVPB SCH (18:00)
[2024-09-08] MEDS ORDERED: PIPERACILLIN/TAZOB 3.375 GM 50 ML IVPB SCH (18:00)
[2024-09-08] MEDS: HYDROmorphone HCl 2 MG/ML VIAL IVPUSH PRN (22:08)
[2024-09-09 10:10] LABS: BASO % 0.5 % (0-2.0); HEMATOCRIT 34.5 % (35.4-49); HEMOGLOBIN 11.7 GM/dL (11.7-16.9); LYMPH % 11.5 % (8-40); MCH 31.8 pg (25.7-33.7); MCHC 33.9 g/dl (32.0-35.9); MEAN CELL VOLUME 93.8 fl (80-96); MEAN PLT VOLUME 10.4 fl (7.5-11.1); MONO % 8.6 % (3.8-10.2); NEUT % 79.4 % (42.8-82.8); PLATELET COUNT 84 10^3/uL (134-434); RBC 3.67 M/mm3 (4.00-5.60); WHITE BLOOD COUNT 6.1 K/mm3 (4.0-10.0)
[2024-09-09 11:02] LABS: POTASSIUM 3.5 mmol/L (3.5-5.1)
[2024-09-09 11:06] LABS: ALBUMIN 2.2 g/dl (3.4-5.0)
[2024-09-09 11:07] LABS: CALCIUM 7.8 mg/dL (8.5-10.1)
[2024-09-09 11:08] LABS: BILIRUBIN,DIRECT 3.7 mg/dL (0.0-0.2); BLOOD UREA NITROGEN 17.2 mg/dL (7-18); MAGNESIUM 1.8 mg/dL (1.8-2.4)
[2024-09-09 11:10] LABS: CREATININE 0.9 mg/dL (0.55-1.3); PHOSPHOROUS 1.6 mg/dL (2.5-4.9)
[2024-09-09 11:11] LABS: TOT PROT 5.1 g/dl (6.4-8.2)
[2024-09-09 11:33] LABS: BILIRUBIN,TOTAL 4.9 mg/dL (0.2-1)
[2024-09-09] MEDS: NAPH,MB-DB/K PH,MBDB POWDER PACKET PO SCH (14:06)
[2024-09-09] MEDS: IBUPROFEN 400 MG TABLET (FP) PO ONE (14:06)
[2024-09-09 15:48] LABS: INR 1.21 (0.83-1.09); PROTHROMBIN TIME (PATIENT) 13.6 SEC (9.7-13.0)
[2024-09-09 21:22] LABS: SARS COV-2 MOLECULAR IN-HOUSE NEGATIVE (NEGATIVE)
[2024-09-10 12:03] LABS: BASO % 0.5 % (0-2.0); EOS % 0.1 % (0-4.5); HEMATOCRIT 35.9 % (35.4-49); HEMOGLOBIN 12.2 GM/dL (11.7-16.9); MCH 31.6 pg (25.7-33.7); MCHC 34.1 g/dl (32.0-35.9); MEAN CELL VOLUME 92.5 fl (80-96); MEAN PLT VOLUME 10.7 fl (7.5-11.1); MONO % 9.3 % (3.8-10.2); NEUT % 81.1 % (42.8-82.8); PLATELET COUNT 100 10^3/uL (134-434); RBC 3.88 M/mm3 (4.00-5.60); RDW 15.1 % (11.9-15.9); WHITE BLOOD COUNT 5.4 K/mm3 (4.0-10.0)
[2024-09-10 12:14] LABS: POTASSIUM 3.5 mmol/L (3.5-5.1)
[2024-09-10 12:18] LABS: ALBUMIN 2.2 g/dl (3.4-5.0); BLOOD UREA NITROGEN 13.3 mg/dL (7-18); CALCIUM 8.3 mg/dL (8.5-10.1)
[2024-09-10 12:20] LABS: CREATININE 0.7 mg/dL (0.55-1.3)
[2024-09-10 12:22] LABS: BILIRUBIN,TOTAL 3.4 mg/dL (0.2-1); TOT PROT 5.3 g/dl (6.4-8.2)
[2024-09-10] MEDS ORDERED: MIDAZOLAM HCL 2 MG/2 ML SINGLE DOSE VIAL ONE (13:31)
[2024-09-10 21:26] VITALS: RESP 18
[2024-09-11 03:24] VITALS: PULSE 73; TEMP 99.7
[2024-09-11 08:38] VITALS: BP 133/92
== END 2024-09-11 09:30 | disposition short-term general hospital (02) | DRG 260 ==
LOC: JASU-ENDO 05:48 → J2C 10:14 → J8W 11:38 → J2C 13:12 → J6S 20:57 → OBSVTOIN 09-08 13:12
PROVIDERS: ADMIT Internal Medicine; ATTEND Internal Medicine
PROC: 0FB98ZX Excision of Common Bile Duct, Via Natural or Artificial Opening Endoscopic, Diagnostic (ICD-10-PCS; 2024-09-05)
PROC: 0FC98ZZ Extirpation of Matter from Common Bile Duct, Via Natural or Artificial Opening Endoscopic (ICD-10-PCS; 2024-09-05)
PROC: 0FCD8ZZ Extirpation of Matter from Pancreatic Duct, Via Natural or Artificial Opening Endoscopic (ICD-10-PCS; 2024-09-05)
PROC: 0FPB8DZ Removal of Intraluminal Device from Hepatobiliary Duct, Via Natural or Artificial Opening Endoscopic (ICD-10-PCS; 2024-09-05)
PROC: 0F798DZ Dilation of Common Bile Duct with Intraluminal Device, Via Natural or Artificial Opening Endoscopic (ICD-10-PCS; 2024-09-05)
PROC: 0FB Hepatobiliary System and Pancreas, Excision (ICD-10-PCS; 2024-09-05)
PROC: 0F9G80Z Drainage of Pancreas with Drainage Device, Via Natural or Artificial Opening Endoscopic (ICD-10-PCS; principal; 2024-09-05 08:00)
DX: K83.09 Other cholangitis (principal); K85.92 Acute pancreatitis with infected necrosis, unspecified; K86.3 Pseudocyst of pancreas; K31.1 Adult hypertrophic pyloric stenosis; D69.6 Thrombocytopenia, unspecified; K86.89 Other specified diseases of pancreas; R10.13 Epigastric pain; E11.9 Type 2 diabetes mellitus without complications; I10 Essential (primary) hypertension; R50.9 Fever, unspecified; N20.0 Calculus of kidney; K20.80 Other esophagitis without bleeding; K29.80 Duodenitis without bleeding; K80.20 Calculus of gallbladder without cholecystitis without obstruction; R74.01 Elevation of levels of liver transaminase levels
CPT/HCPCS: 0241U-QW; 36415; 72132-TC; 74018-TC-FY; 74177-TC; 74178-TC; 74330-TC; 76000-TC-FY; 80053; 80076; 82248; 82962; 83735; 84100; 85025; 85610; 87040; 87635; 88104; 88300-TC; 88305-TC; 93005; 93010; 94760; G0378; G0480; Q9967